=== PATIENT | female | born 1955 | race Caucasian/White ===

== ENCOUNTER 2017-03-05 16:58 | Observation (INO) ==
[2017-03-05] MEDS ORDERED: Ondansetron 4 MG/2 ML VIAL IVP PRN (20:02)
[2017-03-05] MEDS ORDERED: Naloxone 0.4 MG/ML INJ IVP PRN (20:02)
[2017-03-05] MEDS ORDERED: D5% in Water 1,000 ML IVC PRN (20:07)
[2017-03-05] MEDS ORDERED: *HR* Dextrose 50 % in Water (Syg) 50 ML SYRINGE IVP PRN (20:07)
[2017-03-05] MEDS ORDERED: Dextrose Gel 15 GM PO PRN ×2 (20:07)
--- NOTE | 2017-03-05 20:14 | Internal Med History&Physical ---
Addendum entered and electronically signed by Charanjit Hou DO 02:19: Called [facility] to add blood smear path to initial blood draw. Could not add iron panel to it, so patient will need to have this drawn outpatient. Unable to do these studies here as patient received blood transfusion before arrived to [place]. Original Note: <Charanjit Hou - Last Filed: 03/05/17 21:07> Date of Encounter: 03/05/17 Time of Encounter: 20:40 Assessment and Plan (1) Anemia Current visit: Yes Status: Acute 61 y/o female hx of DM found to have anemia of unknown origin Hemoglobin is 6.9 with 1 PPR C transfused at [facility] Blood pressure stable Microcytic hypochromic anemia -Denies melena or hematochezia -Started on iron supplementation yesterday -CBC shows low reticulocyte count -No past EGD or colonoscopy -History of sister having anemia, blood transfusions in the past however no etiology was elucidated for this -Kidney function intact: States she has a recent renal ultrasound which was within normal limits. Plan: Iron studies, ferritin, homocystine, MMA, haptoglobin, fecal occult blood test repeat H&H TSH Protonix Lead UA If above labs do not elucidate etiology may need work up for thalassemia, bone marrow study. NPO midnight: possible EGD/colonoscopy based on lab findings Qualifiers: Anemia type: unspecified type Qualified Code(s): D64.9 - Anemia, unspecified (2) Lower extremity edema Current visit: Yes Status: Acute Patient is 2+ lower extremity edema Denies history of CHF Has albumin level 2.6: States she has been worked up for liver disease and was negative. Liver enzymes within normal limits, bilirubin within normal limits. -may be 2nd to nutritional deficiency -may need EGD for work up of celiac disease We will obtain a echocardiogram. (3) Diabetes mellitus Current visit: Yes Status: Acute hx of DM started DASH diet one month ago and has reduced her HGA1C dramatically according to her (not in our records) Diabetic diet NPO midnight low SSI Qualifiers: Diabetes mellitus type: type 2 Diabetes mellitus complication status: with unspecified complications Diabetes mellitus intermediate project manager insulin use: without fci use Qualified Code(s): E11.8 - Type 2 diabetes mellitus with unspecified complications (4) DVT prophylaxis Current visit: Yes Status: Acute EPCD Medical prophylaxis not indicated due to anemia of unknown origin. Internal Medicine - H&P: HPI Chief complaint: Anemia Admitted From: Hospital to Hospital Transfer Plans for Post Hospital Care: Home History of present illness: Ms. Austin is a 61 year old female with history of diabetes mellitus presents with chief complaint of low hemoglobin. Patient was at her primary care physician's office yesterday for routine check went patient's PCP noted that she had pallor of skin. Her hemoglobin was tested and was found to be 7. At that point and now patient does not have any symptoms of blurry vision, dizziness, headache, nausea, vomiting, chest pain, palpitations ,shortness of breath, abdominal pain, melena, hematochezia, hemoptysis, hematemesis, vaginal bleeding. Patient states she has had pallor for the last 6 weeks. She also has had couple occasions in the past she has tripped and fell and at that time found to have low blood pressure. Patient has sister who has required blood transfusions in the past with the last transfusion being 5 years ago and was worked up extensively for her anemia however the etiology was not found. Patient's father has renal cell carcinoma. Patient's sister has breast cancer and she was recently underwent genetic testing for it and was not found to be negative. She has not had previous EGD or colonoscopy. Past Med Surg Social Fam HX - Past Medical History Medical history: diabetes, hypertension Psychiatric history: no psych history - Social History Smoking Status: Never smoker Smokeless Tobacco Status: No Alcohol use: none Drug use: none Internal Medicine - H&P: Meds Sulfamethoxazole/Trimeth DS [Bactrim DS] 1 each PO BID 03/05/17 [History] hydroCHLOROthiazide [Hydrochlorothiazide] 12.5 mg PO ONCE 03/05/17 [History] Allergies Penicillins Adverse Reaction (Verified 03/05/17 14:02) Rash All Systems PM: A 10-system review of systems was performed and is negative for pertinent findings except as documented above in the HPI. - Constitutional Vitals: Temp Pulse Resp BP Pulse Ox 98.4 F 66 14 171/94 98 03/05/17 18:03 03/05/17 18:03 03/05/17 18:03 03/05/17 18:03 03/05/17 19:25 - Other Additional findings: General: Alert and oriented to place time and situation. Without distress HEENT: Head atraumatic, normocephalic, EOMI, PERRLA, neck nontender to palpation , absent Lymphadenopathy, Moist Mucous Membranes, absent jaundice (white eyes) Heart: Regular rate and rhythm with no murmur Lungs: Clear to auscultation bilaterally Abdomen: Soft nontender, nondistended positive bowel sounds Extremities: 2+ pitting edema, skin: pallor Neuro: Cranial nerves II through XII intact, sensation equal bilaterally, strength upper and lower extremity 5/5, alert oriented 3, gait is steady Vascular: Pedal and radialpulses 2 out of 4 Internal Med - H&P Results - Labs CBC & Chem 7: 03/05/17 20:41 <Carter Candelario - Last Filed: 03/06/17 05:59> Date of Encounter: 03/05/17 Assessment and Plan (1) Symptomatic anemia Current visit: Yes Status: Acute etiology still unclear, she has never had a colonoscopy before, she will need one as outpatient, for now we will transfuse her PRBC whilst we continue to investigate the etiology further (2) HTN (hypertension) Current visit: Yes Status: Chronic will continue her home medications and monitor BP Qualifiers: Hypertension type: essential hypertension Qualified Code(s): I10 - Essential (primary) hypertension Internal Medicine - H&P: HPI History of present illness: Ms. Austin is a 61 year old female Past Med Surg Social Fam HX - Past Medical History Source: patient, old records reviewed Medical history: other (she had anemia after delivery of her children and was on iron supplements for a year, was not transfused) - Past Surgical History Surgical History: no surgical history (she denies prior surgical hx) - Social History Current living situation: Home - Independent, With Family ( was in the room with her) Activity Level: Independent ambulation - Additional Family History Additional family history: father of brain aneurysm, mother is alive and has no known medical conditions, her sister has had multiple blood transfusions but no cause had been identified, she denies any family hx of colon cancer All Systems PM: A 10-system review of systems was performed and is negative for pertinent findings except as documented above in the HPI. - Constitutional Vitals: Temp Pulse Resp BP Pulse Ox 98.1 F 72 17 155/77 97 03/05/17 23:58 03/05/17 23:58 03/05/17 23:58 03/05/17 23:58 03/05/17 23:58 Internal Med - H&P Results - Labs CBC & Chem 7: 03/05/17 20:41 Labs: Short CBC 03/05/17 Range/Units 20:41 WBC 7.8 (4.3-11.1) K/mcL Hgb 8.4 L D (11.5-15.4) g/dL Hct 31.4 L (35.3-44.9) % Plt Count 245 (140-400) K/mcL - Attending Attestation I personally interviewed and examined this patient and my medical decision- making was reviewed with the Resident Physician. I agree with the documented findings, disposition and treatment plan as described except to the extent edited above. Carter Candelario MD, MPH Hospitalist
[2017-03-05 20:51] LABS: Red Cell Distribution Width 21.2 % (11.5-14.5)
[2017-03-05 20:53] LABS: Hematocrit 31.4 % (35.3-44.9); Hemoglobin 8.4 g/dL (11.5-15.4); Mean Corpuscular HGB Conc 26.8 g/dL (31.6-35.5); Mean Corpuscular Hemoglobin 19.5 pg (28.0-33.3); Mean Corpuscular Volume 72.9 fL (83.0-100.0); Mean Platelet Volume 10.5 fL (9.4-12.4); Platelet Count 245 K/mcL (140-400); Red Blood Count 4.31 M/mcL (3.82-4.97)
[2017-03-05] MEDS ORDERED: Insulin LISPRO 300 UNITS/3 ML VIAL SQ SCH (21:00)
[2017-03-05 21:05] LABS: % Iron Saturation 6 % (15-50); Iron 32 mcg/dL (50-170); Transferrin 409 mg/dL (180-382)
[2017-03-05 21:25] LABS: Ferritin 14 ng/ml (5-204)
[2017-03-06 03:53] LABS: Bilirubin,Urine Negative (Negative); Blood,Urine Trace (Negative); Clarity,Urine Turbid (Clear); Color,Urine Yellow (Yellow); Glucose,Urine (UA) Normal (Normal); Ketones,Urine Negative (Negative); Leukocyte Esterase,Urine Large (Negative); Nitrite,Urine Negative (Negative); Protein,Urine 30 mg/dL (Neg-Trace); Specific Gravity,Urine 1.018 (1.010-1.025); Urobilinogen,Urine Normal (Normal)
[2017-03-06 03:57] LABS: Bacteria,Urine Many per hpf (None-Few); Hyaline Casts,Urine None Seen per lpf (None-Few); Squamous Epithelial Cell,Urine Many per lpf (None-Few); WBC,Urine TNTC per hpf (0-3)
[2017-03-06 06:22] LABS: Mean Corpuscular HGB Conc 26.9 g/dL (31.6-35.5)
[2017-03-06 06:23] LABS: Hematocrit 29.4 % (35.3-44.9); Hemoglobin 7.9 g/dL (11.5-15.4); Mean Corpuscular Hemoglobin 19.5 pg (28.0-33.3); Mean Corpuscular Volume 72.4 fL (83.0-100.0); Mean Platelet Volume 10.2 fL (9.4-12.4); Platelet Count 327 K/mcL (140-400); Red Blood Count 4.06 M/mcL (3.82-4.97); Red Cell Distribution Width 20.7 % (11.5-14.5)
[2017-03-06 06:36] LABS: Alanine Aminotransferase 10 Units/L (0-55); Albumin 2.7 g/dL (3.5-5.0); Albumin/Globulin Ratio 0.6 (1.1-2.2); Alkaline Phosphatase 91 Units/L (38-126); Aspartate Amino Transferase 16 Units/L (5-34); BUN/Creatinine Ratio 19 (6-26); Bilirubin,Total 0.5 mg/dL (0.2-1.2); Blood Urea Nitrogen 16 mg/dL (7-20); Calcium 8.3 mg/dL (8.6-10.8); Carbon Dioxide 27 mEq/L (19-29); Chloride 104 mEq/L (98-109); Globulin 4.3 g/dL (2.4-3.5); Glucose 131 mg/dL (70-99); Osmolality,Calculated 289 (280-300); Potassium 3.6 mEq/L (3.5-4.5); Sodium 138 mEq/L (136-145); eGFR For African Americans > 60 (> 60); eGFR For Non-African Americans > 60 (> 60)
[2017-03-06 07:35] LABS: Folate 16.6 ng/mL (7.0-31.4)
[2017-03-06] MEDS: Insulin LISPRO 300 UNITS/3 ML VIAL SQ SCH ×2 (08:59→12:25)
[2017-03-06] MEDS ORDERED: Pantoprazole 40 MG VIAL IVP SCH (09:00)
[2017-03-06 11:05] VITALS: BP 165/89
--- NOTE | 2017-03-06 12:57 | Internal Med Progress Note ---
Date of Encounter: 03/06/17 Time of Encounter: 12:54 - Assessment and plan (1) Iron deficiency anemia Current Visit: Yes Status: Acute Assessment and plan: routine labs with PCP showed Hgb 6.9. Received 1 unit PRBC prior to transfer to [place]. Hgb 8.4 on arrival. Repeat Hgb 7.9 on 03/06/2017. Possibly secondary to multiple blood draws. Patient is declining any further testing/work-up at this time. She is agreeable for 1 unit PRBC now and d/c home if HGb stable. Monitor repeat H&H. Add Fe supplement Qualifiers: Iron deficiency anemia type: other iron deficiency Qualified Code(s): D50.8 - Other iron deficiency anemias (2) Lower extremity edema Current Visit: Yes Status: Acute Assessment and plan: chronic per hx. Improved from baseline per patient. Echo ordered however patient declining. Cont home diuretic, can follow-up with PCP (3) Urinary tract infection Current Visit: Yes Status: Acute Assessment and plan: suspected. UA with large leuk esterase and pyuria. Empirically treat with Cipro. Urine cx pending. Will follow urine cx and change ATB as indicated Qualifiers: Urinary tract infection type: site unspecified Hematuria presence: without hematuria Qualified Code(s): N39.0 - Urinary tract infection, site not specified (4) DVT prophylaxis Current Visit: Yes Status: Acute Assessment and plan: ambulation - Subjective Interval history: Patient is new to me; information obtained from chart revirw and patient report. Seen and examined at bedside; patient says she feels fine and wants to go home. She is refusing any further work-up, imaging at this time. Does not want echo or EGD/c-scope. Says she will follow-up up with PCP on Wednesday. Discussed concern for slight drop in Hgb and she is agreeable for an additional unit PRBC and if Hgb stable then okay for discharge home. - Constitutional Vitals: Temp Pulse Resp BP Pulse Ox 97.5 F L 67 18 165/89 99 03/06/17 11:00 03/06/17 11:00 03/06/17 11:00 03/06/17 11:00 03/06/17 11:00 General appearance: Present: A&O X 3, no acute distress - Head Head exam: Present: atraumatic, normocephalic - Eye Eye exam: Present: PERRL, conjuntiva pink, sclera anicteric Pupils: Present: PERRL - Neck Neck exam general surgery: Present: supple, trachea midline. Absent: lymphadenopathy - Respiratory Respiratory exam: Present: CTAB. Absent: accessory muscle use, rales, rhonchi, wheezes - Cardiovascular Cardiovascular exam: Present: RRR, +S1, +S2. Absent: diastolic murmur, gallop, rubs, systolic murmur - GI/Abdominal GI/Abdominal exam: Present: normal bowel sounds, soft, no peritoneal signs. Absent: distended, tenderness - Extremities Exam Extremities exam: Present: pedal edema, warm, radial pulses palpable and symetrical. Absent: calf tenderness, cyanotic - Neurological Exam Neurological exam: Present: CN II-XII intact, oriented X3, no focal deficits. Absent: pronater drift, facial droop, speech deficit - Skin Skin exam: Present: dry, intact Internal Medicine: Result - Labs CBC & Chem 7: 03/06/17 06:09 03/06/17 06:09 Labs: Short CBC 03/05/17 03/06/17 Range/Units 20:41 06:09 WBC 7.8 7.2 (4.3-11.1) K/mcL Hgb 8.4 L D 7.9 L (11.5-15.4) g/dL Hct 31.4 L 29.4 L (35.3-44.9) % Plt Count 245 327 (140-400) K/mcL BMP 03/06/17 06:09 Sodium 138 Potassium 3.6 Chloride 104 Carbon Dioxide 27 BUN 16 Creatinine 0.85 Glucose 131 H Calcium 8.3 L Liver Function 03/06/17 Range/Units 06:09 Total Bilirubin 0.5 (0.2-1.2) mg/dL AST 16 (5-34) Units/L ALT 10 (0-55) Units/L Alkaline Phosphatase 91 (38-126) Units/L Albumin 2.7 L (3.5-5.0) g/dL Urine 03/06/17 Range/Units 03:41 Urine Color Yellow (Yellow) Urine Clarity Turbid A (Clear) Urine pH 6.0 (5.0-8.0) pH Units Ur Specific [place] 1.018 (1.010-1.025) Urine Protein 30 H (Neg-Trace) mg/dL Urine Glucose (UA) Normal (Normal) mg/dL - VTE Documentation of Mechanical Device: Intermittent pneumatic compression device Consult Discharge Plan - Plan Referrals: Joyce Cobian CNP [Primary Care Provider] -
--- NOTE | 2017-03-06 13:55 | Discharge Summary ---
Date of Encounter: 03/06/17 Time of Encounter: 13:52 - Discharge Diagnosis (1) Iron deficiency anemia Priority: Primary (Patient left A. Please see 03/06/2017 progress note) Status: Acute Qualifiers: Iron deficiency anemia type: other iron deficiency Qualified Code(s): D50.8 - Other iron deficiency anemias (2) Lower extremity edema Priority: Primary Status: Acute (3) Urinary tract infection Priority: Primary Status: Acute Qualifiers: Urinary tract infection type: site unspecified Hematuria presence: without hematuria Qualified Code(s): N39.0 - Urinary tract infection, site not specified - Discharge Medications Home Medications: Sulfamethoxazole/Trimeth DS [Bactrim DS] 1 tab PO BID 03/05/17 [History] hydroCHLOROthiazide [Hydrochlorothiazide] 12.5 mg PO DAILY 03/05/17 [History] Vit A/C/E AC/Znox/Cupric Oxide [Eye Vitamin-Minerals Tablet] 1 tab PO DAILY 12/16 [History] Allergies/Adverse Reactions: Allergies Penicillins Allergy (Verified 03/06/17 12:33) Rash Procedures/tests Complete & Pending: Procedures Performed prior 72 hours Category Date Time Status EV echocardiogram Stat Y 03/06/17 07:00 Completed Date of admission: 03/05/17 17:50 Primary care physician: Joyce Cobian, Discharging clinician: Jessica Everett - Patient Status Disposition: Home, Self-Care Condition: Good Functional capacity at discharge: independent ambulation - Discharge Instructions Follow Up With: Joyce Cobian, [employer] [Primary Care Provider] - Interval History: Patient was found to be anemic on routine labs with [facility]. She was transfused 1 unit PRBC prior to arrival to [place]. Hgb improved to 8.4, however repeat Hgb 7.9. Patient was initially agreeable to reveive one more unit PRBC with PCP follow-up, however she decided she did not want further treatment or work-up ( including blood transfusion) and she left against medical advice Hospital course: Ms. Austin is a 61 year old female - Time Spent with Patient Total time spent providing and/or coordinating discharge services: Less than 30 minutes - Constitutional Vitals: Temp Pulse Resp BP Pulse Ox 97.5 F L 67 18 165/89 99 03/06/17 11:00 03/06/17 11:00 03/06/17 11:00 03/06/17 11:00 03/06/17 11:00 General appearance: Present: A&O X 3, no acute distress - Head Head exam: Present: atraumatic, normocephalic - Eye Eye exam: Present: PERRL, conjuntiva pink, sclera anicteric Pupils: Present: PERRL - Neck Neck exam general surgery: Present: supple, trachea midline. Absent: lymphadenopathy - Respiratory Respiratory exam: Present: CTAB. Absent: accessory muscle use, rales, rhonchi, wheezes - Cardiovascular Cardiovascular exam: Present: RRR, +S1, +S2. Absent: diastolic murmur, gallop, rubs, systolic murmur - GI/Abdominal GI/Abdominal exam: Present: normal bowel sounds, soft, no peritoneal signs. Absent: distended, tenderness - Extremities Exam Extremities exam: Present: pedal edema, warm, radial pulses palpable and symetrical. Absent: calf tenderness, cyanotic - Neurological Exam Neurological exam: Present: CN II-XII intact, oriented X3, no focal deficits. Absent: pronater drift, facial droop, speech deficit - Skin Skin exam: Present: dry, intact - VTE Documentation of Mechanical Device: Intermittent pneumatic compression device
[2017-03-08 10:51] LABS: MMA (VIT B12 STATUS) 0.19 umol/L (0.00-0.40)
== END 2017-03-06 12:59 | disposition left against medical advice (07) ==
LOC: 3ANU
PROVIDERS: ADMIT Family Medicine; ATTEND Family Medicine

== ENCOUNTER 2020-10-14 13:31 | Inpatient (IN) ==
[2020-10-14 14:21] LABS: Hematocrit 35.5 % (35.3-44.9); Hemoglobin 11.6 g/dL (11.5-15.4); Mean Corpuscular HGB Conc 32.7 g/dL (31.6-35.5); Mean Corpuscular Volume 107.3 fL (83.0-100.0); Mean Platelet Volume 10.8 fL (9.4-12.4); Platelet Count 261 K/mcL (140-400); Red Blood Count 3.31 M/mcL (3.82-4.97); Red Cell Distribution Width 13.4 % (11.5-14.5); White Blood Count 6.3 K/mcL (4.3-11.1)
[2020-10-14 14:34] LABS: Calcium 9.6 mg/dL (8.6-10.3); Potassium 5.1 mEq/L (3.5-5.1)
[2020-10-14] MEDS ORDERED: Gabapentin 100 MG CAPSULE PO STA (16:51)
[2020-10-14 17:36] LABS: Hepatitis B Surface Antibody 5.28 mIU/mL
[2020-10-14 17:46] LABS: Hepatitis B Surface Antigen Nonreactive (Nonreactive)
[2020-10-14] MEDS ORDERED: Naloxone 0.4 MG/ML INJ IVP PRN (17:50)
[2020-10-14] MEDS ORDERED: Dextrose Gel 15 GM/37.5 ML TUBE PO PRN ×2 (17:59)
[2020-10-14] MEDS ORDERED: D5% in Water 1,000 ML IVC PRN (17:59)
[2020-10-14] MEDS ORDERED: *HR* Dextrose 50 % in Water (Vial) 50 ML VIAL IVP PRN (17:59)
[2020-10-14] MEDS: hydrALAZINE 25 MG TABLET PO SCH (20:14)
[2020-10-14] MEDS: cloNIDine HCL 0.1 MG TABLET PO SCH (20:14)
[2020-10-14] MEDS: Insulin LISPRO 300 UNITS/3 ML VIAL SUBQ SCH (20:15)
[2020-10-14] MEDS ORDERED: Gabapentin 100 MG CAPSULE PO ONE (23:53)
[2020-10-15 03:51] LABS: Basophils # 0.1 K/mcL (0.0-0.2); Basophils % 0.8 %; Eosinophils # 0.2 K/mcL (0.0-0.6); Eosinophils % 2.6 %; Hematocrit 32.3 % (35.3-44.9); Hemoglobin 10.4 g/dL (11.5-15.4); Immature Granulocytes % 0.4 % (0-4); Lymphocytes # 1.4 K/mcL (0.6-4.6); Lymphocytes % 18.8 %; Mean Corpuscular HGB Conc 32.2 g/dL (31.6-35.5); Mean Corpuscular Hemoglobin 34.3 pg (28.0-33.3); Mean Corpuscular Volume 106.6 fL (83.0-100.0); Mean Platelet Volume 10.4 fL (9.4-12.4); Monocytes # 0.9 K/mcL (0.0-1.3); Monocytes % 12.9 %; Neutrophils # 4.7 K/mcL (1.6-8.9); Platelet Count 239 K/mcL (140-400); Red Blood Count 3.03 M/mcL (3.82-4.97); Red Cell Distribution Width 13.2 % (11.5-14.5); Segmented Neutrophils % 64.5 %; White Blood Count 7.2 K/mcL (4.3-11.1)
[2020-10-15 04:02] LABS: Calcium 9.2 mg/dL (8.6-10.3); Magnesium 1.8 mg/dL (1.6-2.6); Potassium 6.3 mEq/L (3.5-5.1)
[2020-10-15 04:03] LABS: Chol/HDL Ratio 4.2 (0-4.9)
[2020-10-15] MEDS ORDERED: 0.9 % Sodium Chloride 250 ML IVC PRN (07:24)
[2020-10-15] MEDS ORDERED: *HR* Heparin 10,000 UNIT/10 ML VIAL IV PRN (07:24)
[2020-10-15] MEDS ORDERED: 0.9 % Sodium Chloride 1,000 ML PRIME SCH (07:30)
[2020-10-15] MEDS: Insulin LISPRO 300 UNITS/3 ML VIAL SUBQ SCH ×4 (07:49→20:16)
[2020-10-15] MEDS: Gabapentin 100 MG CAPSULE PO SCH ×2 (08:19→20:12)
[2020-10-15 08:34] LABS: Estimated Average Glucose 137 mg/dl; Hemoglobin A1C 6.4 %
[2020-10-15] MEDS ORDERED: Albumin 25% 25gram/100mL 25 GM/100 ML IV.SOLN ONE (10:23)
[2020-10-15] MEDS ORDERED: Perflutren Lipid Microsphere 1.3 ML in 0.9 % Sodium Chloride 8.7 ML IVP PRN (13:25)
[2020-10-15] MEDS: cloNIDine HCL 0.1 MG TABLET PO SCH ×2 (13:44→16:11)
[2020-10-15] MEDS: hydrALAZINE 25 MG TABLET PO SCH ×2 (13:44→16:11)
[2020-10-15] MEDS: amLODIPine 5 MG TABLET PO SCH (13:54)
[2020-10-15] MEDS ORDERED: *HR* HYDROcodone/Acet 5/325 mg TABLET PO PRN ×2 (14:51→22:12)
[2020-10-15] MEDS: *HR* HYDROcodone/Acet 5/325 mg TABLET PO PRN ×2 (15:02→20:57)
[2020-10-15] MEDS ORDERED: Ondansetron 4 MG/2 ML VIAL ONE (17:11)
[2020-10-15] MEDS ORDERED: Acetaminophen IV 1,000 MG/100 ML BAG IVPB PRN (18:00)
[2020-10-15 19:54] LABS: Calcium 10.2 mg/dL (8.6-10.3); Magnesium 1.8 mg/dL (1.6-2.6)
[2020-10-15] MEDS ORDERED: hydrOXYzine pamoate 25 MG CAPSULE PO STA (21:25)
[2020-10-15 21:33] LABS: INR 1.1; Prothrombin Time 13.1 Seconds (9.4-12.1)
[2020-10-16] MEDS ORDERED: 0.9 % Sodium Chloride 1,000 ML ONE (00:02)
[2020-10-16] MEDS ORDERED: 0.9 % Sodium Chloride 1,000 ML IVC ONE (00:02)
[2020-10-16] MEDS ORDERED: Isovue-370 500 ML BOTTLE IVP ONE (00:02)
[2020-10-16] MEDS: hydrALAZINE 25 MG TABLET PO SCH ×4 (00:17→21:05)
[2020-10-16] MEDS: cloNIDine HCL 0.1 MG TABLET PO SCH ×4 (00:17→21:04)
[2020-10-16 00:38] LABS: Basophils % 0.2 %; Eosinophils % 0.1 %; Hematocrit 35.3 % (35.3-44.9); Hemoglobin 11.5 g/dL (11.5-15.4); Immature Granulocytes % 0.5 % (0-4); Lymphocytes # 0.7 K/mcL (0.6-4.6); Lymphocytes % 5.4 %; Mean Corpuscular HGB Conc 32.6 g/dL (31.6-35.5); Mean Corpuscular Hemoglobin 34.6 pg (28.0-33.3); Mean Corpuscular Volume 106.3 fL (83.0-100.0); Mean Platelet Volume 10.4 fL (9.4-12.4); Monocytes # 1.4 K/mcL (0.0-1.3); Monocytes % 10.9 %; Neutrophils # 10.6 K/mcL (1.6-8.9); Platelet Count 253 K/mcL (140-400); Red Blood Count 3.32 M/mcL (3.82-4.97); Red Cell Distribution Width 13.1 % (11.5-14.5); Segmented Neutrophils % 82.9 %; White Blood Count 12.8 K/mcL (4.3-11.1)
[2020-10-16 00:53] LABS: Calcium 9.8 mg/dL (8.6-10.3); Potassium 5.1 mEq/L (3.5-5.1)
[2020-10-16 00:56] LABS: BUN/Creatinine Ratio 10 (6-26); Blood Urea Nitrogen 42 mg/dL (8-23); Carbon Dioxide 25 mEq/L (23-29); Chloride 93 mEq/L (98-107); Glucose 217 mg/dL (70-105); Osmolality,Calculated 299 (280-300); Potassium 5.2 mEq/L (3.5-5.1); Sodium 136 mEq/L (136-145); Troponin I < 0.03 ng/mL (< 0.04); eGFR For African Americans 12 (> 60); eGFR For Non-African Americans 10 (> 60)
[2020-10-16] MEDS ORDERED: *HR* Heparin 5,000 UNIT/ML VIAL IVP PRN ×2 (01:47)
[2020-10-16] MEDS ORDERED: *HR* Heparin 5,000 UNIT/ML VIAL IVP ONE (01:47)
[2020-10-16] MEDS ORDERED: Insulin Human Regular 10 UNIT in 0.9 % Sodium Chloride 10 ML IV ONE (01:58)
[2020-10-16] MEDS ORDERED: *HR* Dextrose 50 % in Water (Vial) 50 ML VIAL IVP ONE (02:02)
[2020-10-16] MEDS ORDERED: Calcium Gluconate 1gm/50mL 1 GM/50 ML BAG IVPB ONE (02:04)
[2020-10-16] MEDS: Heparin 25,000UNIT/250ML 1/2NS 25,000 UNIT/250 ML IV.SOLN IVC SCH (02:06)
[2020-10-16 02:18] LABS: Hematocrit 33.7 % (35.3-44.9); Hemoglobin 11.4 g/dL (11.5-15.4); Mean Corpuscular HGB Conc 33.8 g/dL (31.6-35.5); Mean Corpuscular Hemoglobin 34.9 pg (28.0-33.3); Mean Corpuscular Volume 103.1 fL (83.0-100.0); Mean Platelet Volume 10.2 fL (9.4-12.4); Platelet Count 228 K/mcL (140-400); Red Blood Count 3.27 M/mcL (3.82-4.97); Red Cell Distribution Width 13.2 % (11.5-14.5); White Blood Count 12.6 K/mcL (4.3-11.1)
[2020-10-16 02:22] LABS: Heparin anti-factor XA UFH 0.04 IU/mL (0.30-0.70)
[2020-10-16 02:23] LABS: INR 1.1; Prothrombin Time 12.9 Seconds (9.4-12.1)
[2020-10-16] MEDS ORDERED: *HR* Heparin 5,000 UNIT/ML VIAL SQ SCH (06:00)
[2020-10-16] MEDS: Insulin LISPRO 300 UNITS/3 ML VIAL SUBQ SCH ×4 (08:43→21:04)
[2020-10-16] MEDS: amLODIPine 5 MG TABLET PO SCH (08:56)
[2020-10-16] MEDS: Gabapentin 100 MG CAPSULE PO SCH ×2 (08:56→21:08)
[2020-10-16] MEDS ORDERED: Perflutren Lipid Microsphere 1.3 ML in 0.9 % Sodium Chloride 8.7 ML IVP PRN (10:11)
[2020-10-16] MEDS ORDERED: *HR* HYDROcodone/Acet 5/325 mg TABLET PO PRN (12:46)
[2020-10-16] MEDS ORDERED: 0.9 % Sodium Chloride 250 ML IVC ONE (16:10)
[2020-10-16] MEDS ORDERED: 0.9 % Sodium Chloride 250 ML ONE (16:12)
[2020-10-16] MEDS: Acetaminophen 325 MG TABLET PO PRN (22:44)
[2020-10-17] MEDS: Heparin 25,000UNIT/250ML 1/2NS 25,000 UNIT/250 ML IV.SOLN IVC SCH ×3 (00:05→23:21)
[2020-10-17 03:33] LABS: Calcium 9.5 mg/dL (8.6-10.3); Potassium 6.7 mEq/L (3.5-5.1)
[2020-10-17] MEDS ORDERED: Insulin Human Regular 10 UNIT in 0.9 % Sodium Chloride 10 ML IV ONE (04:42)
[2020-10-17] MEDS ORDERED: Calcium Gluconate 1gm/50mL 1 GM/50 ML BAG IVPB ONE (04:42)
[2020-10-17] MEDS ORDERED: *HR* Dextrose 50 % in Water (Vial) 50 ML VIAL IVP ONE (04:45)
[2020-10-17 06:00] LABS: Basophils # 0.1 K/mcL (0.0-0.2); Basophils % 0.6 %; Eosinophils # 0.4 K/mcL (0.0-0.6); Eosinophils % 3.2 %; Hematocrit 33.9 % (35.3-44.9); Immature Granulocytes % 0.3 % (0-4); Lymphocytes # 1.4 K/mcL (0.6-4.6); Lymphocytes % 11.1 %; Mean Corpuscular HGB Conc 32.4 g/dL (31.6-35.5); Mean Corpuscular Hemoglobin 35.5 pg (28.0-33.3); Mean Corpuscular Volume 109.4 fL (83.0-100.0); Mean Platelet Volume 10.7 fL (9.4-12.4); Monocytes # 1.3 K/mcL (0.0-1.3); Monocytes % 10.3 %; Neutrophils # 9.5 K/mcL (1.6-8.9); Platelet Count 220 K/mcL (140-400); Red Cell Distribution Width 12.9 % (11.5-14.5); Segmented Neutrophils % 74.5 %; White Blood Count 12.7 K/mcL (4.3-11.1)
[2020-10-17] MEDS: Insulin LISPRO 300 UNITS/3 ML VIAL SUBQ SCH ×3 (07:19→21:31)
[2020-10-17] MEDS ORDERED: *HR* Heparin 10,000 UNIT/10 ML VIAL IV PRN (07:38)
[2020-10-17] MEDS ORDERED: 0.9 % Sodium Chloride 250 ML IVC PRN ×2 (07:38→21:57)
[2020-10-17] MEDS ORDERED: 0.9 % Sodium Chloride 1,000 ML PRIME SCH ×2 (07:45→21:57)
[2020-10-17] MEDS: Acetaminophen 325 MG TABLET PO PRN (08:30)
[2020-10-17] MEDS: Albumin 25% 25gram/100mL 25 GM/100 ML IV.SOLN IVPB PRN ×2 (09:35→09:50)
[2020-10-17] MEDS ORDERED: Albumin 25% 25gram/100mL 25 GM/100 ML IV.SOLN ONE (10:01)
[2020-10-17 10:52] LABS: Adenovirus Not Detected (Not Detect); Coronavirus 229E Not Detected (Not Detect); Coronavirus HKU1 Not Detected (Not Detect); Coronavirus NL63 Not Detected (Not Detect); Coronavirus OC43 Not Detected (Not Detect)
[2020-10-17 10:53] LABS: Bordetella Pertussis Not Detected (Not Detect); Chlamydophila pneumoniae Not Detected (Not Detect); Human Metapneumovirus Not Detected (Not Detect); Human Rhinovirus/Enterovirus Not Detected (Not Detect); Influenza A Subtype 2009 H1 Not Detected (Not Detect); Influenza B Not Detected (Not Detect); Mycoplasma pneumoniae Not Detected (Not Detect); Parainfluenza Virus 1 Not Detected (Not Detect); Parainfluenza Virus 2 Not Detected (Not Detect); Parainfluenza Virus 3 Not Detected (Not Detect); Parainfluenza Virus 4 Not Detected (Not Detect); Respiratory Syncytial Virus Not Detected (Not Detect); SARS-CoV-2 Not Detected (Not Detect)
[2020-10-17] MEDS ORDERED: Acetaminophen IV 1,000 MG/100 ML BAG IVPB ONE (11:48)
[2020-10-17] MEDS ORDERED: Morphine Sulfate 2 MG/ML SYRINGE IVP ONE (13:42)
[2020-10-17] MEDS: Gabapentin 100 MG CAPSULE PO SCH ×2 (16:10→21:33)
[2020-10-17] MEDS: hydrALAZINE 25 MG TABLET PO SCH ×3 (16:10→21:33)
[2020-10-17] MEDS: cloNIDine HCL 0.1 MG TABLET PO SCH ×3 (16:10→21:32)
[2020-10-17] MEDS: amLODIPine 5 MG TABLET PO SCH (16:10)
[2020-10-17] MEDS ORDERED: Ondansetron 4 MG/2 ML VIAL ONE (16:35)
[2020-10-17] MEDS ORDERED: Dexamethasone 4 MG/ML VIAL ONE (16:35)
[2020-10-17] MEDS ORDERED: Lidocaine -MPF 2% 2 ML VIAL ONE (16:35)
[2020-10-17] MEDS ORDERED: *HR* FentaNYL (PF) 100 MCG/2 ML VIAL ONE (16:35)
[2020-10-17] MEDS ORDERED: *HR* Midazolam HCl 2 MG/2 ML VIAL ONE (16:35)
[2020-10-17] MEDS ORDERED: *HR* Propofol 200 MG/20 ML VIAL IVP ONE (16:35)
[2020-10-17] MEDS ORDERED: Ipratropium/Albuterol Neb 3 ML ONE (16:45)
[2020-10-17] MEDS ORDERED: Ipratropium/Albuterol Neb 3 ML IH ONE (16:47)
[2020-10-17 16:50] LABS: ABG Base Excess 8 mEq/L (-2 to 3); ABG HCO3 29 mEq/L (21-27); ABG Oxygen Saturation 95 % (95-98); ABG PCO2 29 mmHg (35-45); ABG PH 7.61 pH Units (7.32-7.45); ABG PO2 61 mmHg (85-104); ABG TCO2 30 mEq/L (20-26)
[2020-10-17 17:15] LABS: Basophils % 0.4 %; Eosinophils # 0.2 K/mcL (0.0-0.6); Eosinophils % 2.1 %; Hematocrit 31.4 % (35.3-44.9); Hemoglobin 10.6 g/dL (11.5-15.4); Immature Granulocytes % 0.5 % (0-4); Lymphocytes # 1.3 K/mcL (0.6-4.6); Lymphocytes % 13.4 %; Mean Corpuscular HGB Conc 33.8 g/dL (31.6-35.5); Mean Corpuscular Hemoglobin 35.6 pg (28.0-33.3); Mean Corpuscular Volume 105.4 fL (83.0-100.0); Mean Platelet Volume 10.4 fL (9.4-12.4); Monocytes # 0.9 K/mcL (0.0-1.3); Monocytes % 9.2 %; Neutrophils # 7.3 K/mcL (1.6-8.9); Platelet Count 209 K/mcL (140-400); Red Blood Count 2.98 M/mcL (3.82-4.97); Red Cell Distribution Width 12.6 % (11.5-14.5); Segmented Neutrophils % 74.4 %; White Blood Count 9.8 K/mcL (4.3-11.1)
[2020-10-17] MEDS ORDERED: Ondansetron 4 MG/2 ML VIAL IVP PRN ×2 (17:30→21:57)
[2020-10-17] MEDS ORDERED: Clindamycin 900 MG/50 ML 900 MG/50 ML IV.SOLN IVPB ONE (17:46)
[2020-10-17] MEDS ORDERED: *HR* PHENYLEPHRINE 1,000 MCG/10 ML SYRINGE IVP ONE (17:46)
[2020-10-17 18:37] LABS: Calcium 10.1 mg/dL (8.6-10.3); Potassium 3.9 mEq/L (3.5-5.1); Troponin I 0.07 ng/mL (< 0.04)
[2020-10-17] MEDS ORDERED: Acetaminophen IV 500 MG/50 ML BAG IVPB ONE (18:43)
[2020-10-17] MEDS: *HR* FentaNYL (PF) 100 MCG/2 ML VIAL IVP PRN ×3 (18:46→19:20)
[2020-10-17] MEDS ORDERED: cloNIDine HCL 0.1 MG TABLET PO ONE (19:28)
[2020-10-17] MEDS ORDERED: *HR* HYDROmorphone (PF) 1 MG/ML SYRINGE ONE (19:31)
[2020-10-17] MEDS ORDERED: *HR* Labetalol 20 MG/4 ML SYRINGE IVP ONE (19:31)
[2020-10-17] MEDS ORDERED: cloNIDine HCL 0.1 MG TABLET ONE (19:32)
[2020-10-17] MEDS: *HR* Labetalol 20 MG/4 ML SYRINGE IVP PRN ×2 (19:33→19:51)
[2020-10-17] MEDS: *HR* HYDROmorphone (PF) 1 MG/ML SYRINGE IVP PRN ×2 (19:35→19:45)
[2020-10-17] MEDS ORDERED: *HR* Heparin 5,000 UNIT/ML VIAL IVP PRN ×2 (21:57)
[2020-10-17] MEDS ORDERED: Perflutren Lipid Microsphere 1.3 ML in 0.9 % Sodium Chloride 8.7 ML IVP PRN (21:57)
[2020-10-17] MEDS ORDERED: Albumin 25% 25gram/100mL 25 GM/100 ML IV.SOLN IVPB PRN (21:57)
[2020-10-17] MEDS ORDERED: D5% in Water 1,000 ML IVC PRN (21:57)
[2020-10-17] MEDS ORDERED: *HR* FentaNYL (PF) 100 MCG/2 ML VIAL IVP PRN (21:57)
[2020-10-17] MEDS ORDERED: Naloxone 0.4 MG/ML INJ IVP PRN (21:57)
[2020-10-17] MEDS ORDERED: Dextrose Gel 15 GM/37.5 ML TUBE PO PRN ×2 (21:57)
[2020-10-17] MEDS ORDERED: *HR* Dextrose 50 % in Water (Vial) 50 ML VIAL IVP PRN (21:57)
[2020-10-17 22:21] LABS: ABG Base Excess 5 mEq/L (-2 to 3); ABG HCO3 26 mEq/L (21-27); ABG Oxygen Saturation 98 % (95-98); ABG PCO2 25 mmHg (35-45); ABG PH 7.63 pH Units (7.32-7.45); ABG PO2 82 mmHg (85-104); ABG TCO2 27 mEq/L (20-26)
[2020-10-18 00:34] LABS: Basophils % 0.2 %; Eosinophils % 0.1 %; Hematocrit 29.8 % (35.3-44.9); Immature Granulocytes % 0.5 % (0-4); Lymphocytes # 0.6 K/mcL (0.6-4.6); Lymphocytes % 4.8 %; Mean Corpuscular HGB Conc 33.6 g/dL (31.6-35.5); Mean Corpuscular Hemoglobin 35.5 pg (28.0-33.3); Mean Corpuscular Volume 105.7 fL (83.0-100.0); Mean Platelet Volume 10.8 fL (9.4-12.4); Monocytes # 1.2 K/mcL (0.0-1.3); Monocytes % 8.7 %; Neutrophils # 11.3 K/mcL (1.6-8.9); Platelet Count 179 K/mcL (140-400); Red Blood Count 2.82 M/mcL (3.82-4.97); Red Cell Distribution Width 12.7 % (11.5-14.5); Segmented Neutrophils % 85.7 %; White Blood Count 13.2 K/mcL (4.3-11.1)
[2020-10-18 00:52] LABS: Calcium 9.4 mg/dL (8.6-10.3); Potassium 4.7 mEq/L (3.5-5.1)
[2020-10-18] MEDS ORDERED: 0.9 % Sodium Chloride 250 ML IVC PRN (07:20)
[2020-10-18] MEDS ORDERED: *HR* Heparin 10,000 UNIT/10 ML VIAL IV PRN (07:20)
[2020-10-18] MEDS: Heparin 25,000UNIT/250ML 1/2NS 25,000 UNIT/250 ML IV.SOLN IVC SCH (07:30)
[2020-10-18] MEDS: Insulin LISPRO 300 UNITS/3 ML VIAL SUBQ SCH ×3 (08:00→16:38)
[2020-10-18] MEDS: cloNIDine HCL 0.1 MG TABLET PO SCH ×3 (09:18→21:19)
[2020-10-18] MEDS: amLODIPine 5 MG TABLET PO SCH (09:19)
[2020-10-18] MEDS: hydrALAZINE 25 MG TABLET PO SCH ×3 (09:19→23:04)
[2020-10-18] MEDS: Acetaminophen 325 MG TABLET PO PRN (10:20)
[2020-10-18] MEDS: Gabapentin 100 MG CAPSULE PO SCH ×2 (10:22→20:44)
[2020-10-18 11:47] LABS: ABG Base Excess 3 mEq/L (-2 to 3); ABG HCO3 28 mEq/L (21-27); ABG Oxygen Saturation 97 % (95-98); ABG PCO2 45 mmHg (35-45); ABG PH 7.41 pH Units (7.32-7.45); ABG PO2 89 mmHg (85-104); ABG TCO2 30 mEq/L (20-26)
[2020-10-18] MEDS: *HR* HYDROcodone/Acet 5/325 mg TABLET PO PRN (12:24)
[2020-10-18] MEDS ORDERED: Clindamycin 900 MG/50 ML 900 MG/50 ML IV.SOLN IVPB SCH ×2 (16:00)
[2020-10-18] MEDS: Apixaban 5 MG TABLET PO SCH (20:45)
[2020-10-19 03:03] LABS: Basophils # 0.1 K/mcL (0.0-0.2); Basophils % 0.4 %; Eosinophils # 0.4 K/mcL (0.0-0.6); Eosinophils % 3.4 %; Hematocrit 25.2 % (35.3-44.9); Immature Granulocytes % 0.4 % (0-4); Lymphocytes # 0.6 K/mcL (0.6-4.6); Lymphocytes % 5.5 %; Mean Corpuscular HGB Conc 31.7 g/dL (31.6-35.5); Mean Corpuscular Hemoglobin 34.9 pg (28.0-33.3); Mean Platelet Volume 10.8 fL (9.4-12.4); Monocytes # 1.6 K/mcL (0.0-1.3); Monocytes % 13.8 %; Neutrophils # 8.6 K/mcL (1.6-8.9); Platelet Count 178 K/mcL (140-400); Red Blood Count 2.29 M/mcL (3.82-4.97); Red Cell Distribution Width 13.1 % (11.5-14.5); Segmented Neutrophils % 76.5 %; White Blood Count 11.3 K/mcL (4.3-11.1)
[2020-10-19 03:19] LABS: Potassium 4.9 mEq/L (3.5-5.1)
[2020-10-19] MEDS: Insulin LISPRO 300 UNITS/3 ML VIAL SUBQ SCH ×3 (08:15→17:02)
[2020-10-19] MEDS: Apixaban 5 MG TABLET PO SCH ×2 (08:19→19:22)
[2020-10-19] MEDS: Gabapentin 100 MG CAPSULE PO SCH ×2 (08:20→19:22)
[2020-10-19] MEDS: amLODIPine 5 MG TABLET PO SCH (08:27)
[2020-10-19] MEDS: cloNIDine HCL 0.1 MG TABLET PO SCH ×3 (08:31→19:15)
[2020-10-19] MEDS: hydrALAZINE 25 MG TABLET PO SCH ×3 (11:58→19:15)
[2020-10-19] MEDS: Acetaminophen 325 MG TABLET PO PRN (23:48)
[2020-10-20 04:30] LABS: Basophils % 0.3 %; Eosinophils # 0.4 K/mcL (0.0-0.6); Eosinophils % 3.7 %; Hematocrit 22.2 % (35.3-44.9); Hemoglobin 7.1 g/dL (11.5-15.4); Immature Granulocytes % 0.5 % (0-4); Lymphocytes # 0.9 K/mcL (0.6-4.6); Lymphocytes % 7.7 %; Mean Corpuscular Hemoglobin 34.6 pg (28.0-33.3); Mean Corpuscular Volume 108.3 fL (83.0-100.0); Mean Platelet Volume 10.8 fL (9.4-12.4); Monocytes # 1.7 K/mcL (0.0-1.3); Monocytes % 14.2 %; Neutrophils # 8.8 K/mcL (1.6-8.9); Platelet Count 184 K/mcL (140-400); Red Blood Count 2.05 M/mcL (3.82-4.97); Red Cell Distribution Width 12.6 % (11.5-14.5); Segmented Neutrophils % 73.6 %; White Blood Count 11.9 K/mcL (4.3-11.1)
[2020-10-20 04:48] LABS: Calcium 9.1 mg/dL (8.6-10.3); Potassium 4.6 mEq/L (3.5-5.1)
[2020-10-20] MEDS ORDERED: 0.9 % Sodium Chloride 250 ML IVC SCH (07:30)
[2020-10-20] MEDS: Insulin LISPRO 300 UNITS/3 ML VIAL SUBQ SCH ×3 (08:49→18:54)
[2020-10-20] MEDS: Apixaban 5 MG TABLET PO SCH ×2 (08:53→21:52)
[2020-10-20] MEDS: hydrALAZINE 25 MG TABLET PO SCH ×3 (08:53→21:51)
[2020-10-20] MEDS: amLODIPine 5 MG TABLET PO SCH (08:54)
[2020-10-20] MEDS: Gabapentin 100 MG CAPSULE PO SCH ×2 (08:54→21:51)
[2020-10-20] MEDS: cloNIDine HCL 0.1 MG TABLET PO SCH (21:51)
[2020-10-21 02:29] LABS: Basophils % 0.4 %; Eosinophils # 0.5 K/mcL (0.0-0.6); Eosinophils % 4.4 %; Hematocrit 26.4 % (35.3-44.9); Hemoglobin 8.4 g/dL (11.5-15.4); Immature Granulocytes % 0.6 % (0-4); Lymphocytes # 1.1 K/mcL (0.6-4.6); Lymphocytes % 9.6 %; Mean Corpuscular HGB Conc 31.8 g/dL (31.6-35.5); Mean Corpuscular Hemoglobin 34.1 pg (28.0-33.3); Mean Corpuscular Volume 107.3 fL (83.0-100.0); Mean Platelet Volume 10.6 fL (9.4-12.4); Monocytes # 1.6 K/mcL (0.0-1.3); Monocytes % 14.8 %; Neutrophils # 7.7 K/mcL (1.6-8.9); Platelet Count 213 K/mcL (140-400); Red Blood Count 2.46 M/mcL (3.82-4.97); Red Cell Distribution Width 13.7 % (11.5-14.5); Segmented Neutrophils % 70.2 %
[2020-10-21 02:51] LABS: Calcium 8.8 mg/dL (8.6-10.3); Potassium 5.2 mEq/L (3.5-5.1)
[2020-10-21] MEDS: Gabapentin 100 MG CAPSULE PO SCH ×2 (08:03→19:25)
[2020-10-21] MEDS: Apixaban 5 MG TABLET PO SCH ×2 (08:03→19:26)
[2020-10-21] MEDS: Insulin LISPRO 300 UNITS/3 ML VIAL SUBQ SCH ×3 (08:03→18:18)
[2020-10-21] MEDS ORDERED: 0.9 % Sodium Chloride 250 ML IVC PRN (08:04)
[2020-10-21] MEDS ORDERED: *HR* Heparin 10,000 UNIT/10 ML VIAL IV PRN ×2 (08:04)
[2020-10-21] MEDS: cloNIDine HCL 0.1 MG TABLET PO SCH ×3 (13:27→19:28)
[2020-10-21] MEDS: hydrALAZINE 25 MG TABLET PO SCH ×3 (13:28→19:28)
[2020-10-21] MEDS: amLODIPine 5 MG TABLET PO SCH (13:29)
[2020-10-21] MEDS: *HR* HYDROcodone/Acet 5/325 mg TABLET PO PRN (13:30)
[2020-10-22 03:37] LABS: Basophils # 0.1 K/mcL (0.0-0.2); Basophils % 0.6 %; Eosinophils # 0.3 K/mcL (0.0-0.6); Eosinophils % 3.3 %; Hematocrit 25.3 % (35.3-44.9); Hemoglobin 8.1 g/dL (11.5-15.4); Immature Granulocytes % 0.8 % (0-4); Lymphocytes # 0.8 K/mcL (0.6-4.6); Lymphocytes % 9.6 %; Mean Corpuscular Hemoglobin 33.6 pg (28.0-33.3); Mean Platelet Volume 10.6 fL (9.4-12.4); Monocytes # 1.3 K/mcL (0.0-1.3); Monocytes % 16.1 %; Neutrophils # 5.5 K/mcL (1.6-8.9); Platelet Count 193 K/mcL (140-400); Red Blood Count 2.41 M/mcL (3.82-4.97); Red Cell Distribution Width 13.3 % (11.5-14.5); Segmented Neutrophils % 69.6 %; White Blood Count 7.9 K/mcL (4.3-11.1)
[2020-10-22 03:52] LABS: Potassium 4.4 mEq/L (3.5-5.1)
[2020-10-22] MEDS: Apixaban 5 MG TABLET PO SCH (08:13)
[2020-10-22] MEDS: Gabapentin 100 MG CAPSULE PO SCH (08:13)
[2020-10-22] MEDS: Insulin LISPRO 300 UNITS/3 ML VIAL SUBQ SCH ×2 (08:14→12:14)
[2020-10-22] MEDS: hydrALAZINE 25 MG TABLET PO SCH (08:14)
[2020-10-22] MEDS: cloNIDine HCL 0.1 MG TABLET PO SCH (08:15)
[2020-10-22] MEDS: amLODIPine 5 MG TABLET PO SCH (08:15)
[2020-10-22 11:25] VITALS: BP 136/67
== END 2020-10-22 15:56 | DRG 981 ==
LOC: 2ANU 13:31 → EMEROOARM 13:31 → SUATTDRO 16:47 → 2ANU 17:41 → SUATTDRO 10-15 23:12 → 2NENU 10-18 01:04
PROVIDERS: ADMIT Family Medicine; ATTEND Internal Medicine

== ENCOUNTER 2022-03-14 17:53 | Inpatient (IN) ==
[2022-03-14] MEDS ORDERED: DilTIAZem 50 MG/50 ML IV.SOLN IVC SCH (18:30)
[2022-03-14] MEDS ORDERED: 0.9 % Sodium Chloride 1,000 ML ONE (18:36)
[2022-03-14] MEDS ORDERED: Aspirin 81 MG TAB.CHEW ONE (18:39)
[2022-03-14 19:00] LABS: Albumin 4.2 g/dL (3.5-5.7); Albumin/Globulin Ratio 1.1 (1.1-2.2); Bilirubin,Direct 0.1 mg/dL (0.0-0.2); Bilirubin,Indirect 0.2 mg/dL (0.0-1.0); Bilirubin,Total 0.3 mg/dL (0.3-1.0); Calcium 9.9 mg/dL (8.6-10.3); Globulin 3.8 g/dL (2.4-3.5); Magnesium 2.1 mg/dL (1.6-2.6); Phosphorous 3.7 mg/dL (2.7-4.5); Potassium 3.9 mEq/L (3.5-5.1)
[2022-03-14 19:02] LABS: Troponin I 0.04 ng/mL (< 0.04)
[2022-03-14] MEDS ORDERED: 0.9 % Sodium Chloride 2,000 ML ONE (19:04)
[2022-03-14] MEDS ORDERED: Iopamidol - 370 200 ML INFUS..BTL ONE (19:04)
[2022-03-14] MEDS ORDERED: Heparin 1,000 UNITS/500 mL 500 ML ONE (19:04)
[2022-03-14] MEDS ORDERED: Nitroglycerin 1,000 MCG/5 ML VIAL IV ONE (19:04)
[2022-03-14] MEDS ORDERED: *HR* Heparin 10,000 UNIT/10 ML VIAL ONE (19:04)
[2022-03-14] MEDS ORDERED: *HR* Metoprolol 5 MG/5 ML VIAL IVP STA (19:08)
[2022-03-14] MEDS ORDERED: *HR* Midazolam HCl 2 MG/2 ML VIAL ONE (19:31)
[2022-03-14] MEDS ORDERED: *HR* FentaNYL (PF) 100 MCG/2 ML VIAL ONE (19:31)
[2022-03-14] MEDS ORDERED: Cholecalciferol (D-3) 1,000 UNIT (25MCG) TABLET PO SCH (20:15)
[2022-03-14] MEDS: Apixaban 5 MG TABLET PO SCH (21:51)
[2022-03-14] MEDS: Gabapentin 100 MG CAPSULE PO SCH (21:51)
[2022-03-14 22:09] LABS: Basophils # 0.1 K/mcL (0.0-0.2); Basophils % 0.5 %; Eosinophils # 0.2 K/mcL (0.0-0.6); Hematocrit 34.9 % (35.3-44.9); Hemoglobin 11.7 g/dL (11.5-15.4); Immature Granulocytes % 0.4 % (0-4); Lymphocytes # 1.3 K/mcL (0.6-4.6); Lymphocytes % 13.3 %; Mean Corpuscular HGB Conc 33.5 g/dL (31.6-35.5); Mean Corpuscular Hemoglobin 36.2 pg (28.0-33.3); Mean Platelet Volume 11.6 fL (9.4-12.4); Monocytes # 0.8 K/mcL (0.0-1.3); Monocytes % 7.8 %; Neutrophils # 7.3 K/mcL (1.6-8.9); Platelet Count 202 K/mcL (140-400); Red Blood Count 3.23 M/mcL (3.82-4.97); White Blood Count 9.6 K/mcL (4.3-11.1)
[2022-03-14] MEDS ORDERED: hydrALAZINE 10 MG TABLET PO PRN (22:22)
[2022-03-14 22:24] LABS: Calcium 9.3 mg/dL (8.6-10.3); Potassium 4.2 mEq/L (3.5-5.1)
[2022-03-14] MEDS: carvediloL 6.25 MG TABLET PO SCH (22:43)
[2022-03-15] MEDS: carvediloL 6.25 MG TABLET PO SCH (06:07)
[2022-03-15 07:06] VITALS: TEMP 97.9
[2022-03-15] MEDS ORDERED: carvediloL 6.25 MG TABLET PO SCH (08:00)
[2022-03-15] MEDS: Gabapentin 100 MG CAPSULE PO SCH (08:04)
[2022-03-15] MEDS: Apixaban 5 MG TABLET PO SCH (08:04)
[2022-03-15] MEDS ORDERED: Cholecalciferol (D-3) 1,000 UNIT (25MCG) TABLET PO SCH (09:00)
[2022-03-15] MEDS ORDERED: amLODIPine 5 MG TABLET PO SCH (09:00)
[2022-03-15] MEDS ORDERED: Aspirin 81 MG TAB.CHEW PO SCH (09:00)
[2022-03-15] MEDS ORDERED: lisinopriL 5 MG TABLET PO SCH (09:00)
[2022-03-15 10:20] VITALS: BP 187/69; PULSE 61; O2SAT 98
== END 2022-03-15 11:15 | disposition home or self-care (01) | DRG 280 ==
LOC: EMEROOARM 17:53 → 2NNU 19:21 → ICNU 19:38 → 2NNU 19:47
PROVIDERS: ADMIT Internal Medicine Cardiovascular Disease; ATTEND Internal Medicine Cardiovascular Disease